=== PATIENT | male | born 1980 | race Caucasian/White ===

== ENCOUNTER 2019-10-04 13:36 | Emergency (ER) | payer BC ==
[2019-10-04] MEDS ORDERED: Sodium Chloride 0.9% 10 ML Syringe FLUSH PRN (13:52)
--- NOTE | 2019-10-04 14:09 | EDM.PDOC ---
ED HPI GENERAL MEDICAL PROBLEM - General Chief Complaint: Diabetic Complaint Stated Complaint: HIGH BLOOD SUGAR Time Seen by Provider: 10/04/19 13:38 Source of Information: Reports: Patient History Limitations: Reports: No Limitations - History of Present Illness INITIAL COMMENTS - FREE TEXT/NARRATIVE: Patient is a 39-year-old male who presents to the emergency department with complaints of a 3-day history of dizziness and weakness. He states on Monday of this week he was at work and he "felt weird ". His boss sent him home from work. When he got home, he checked his blood sugar and it was found to be 500. Patient does have a history of type 2 diabetes, however states that he was taken off his metformin approximately 2 years ago because his A1c's were good. He has not taken any diabetic medication since that time. On Monday evening he did take two 500 mg tabs of metformin. States his blood sugar came down to the 300s. He has continued taking the metformin 1000 mg once daily since Monday, however states that the lowest blood sugar has been at home is 279 and whenever he eats it goes higher. Last night he also developed some mild right lower back discomfort. He is unsure if this pain is coming from his kidneys or his back pain related to him lying around more over the last few days. He denies any polyuria, polydipsia, vision changes, nausea, vomiting, or diarrhea. He does have intermittent chills and diaphoresis. His primary care provider is Makenna Peres and he is due to have his annual exam. He states he try to get in with her today, however she is out of town. Bedside glucose on triage was 243. Patient states he ate a BLT around 1030 this morning, and that is the first significant carbohydrate he has eaten since Monday. Bilateral Flank Pain Score (Numeric/FACES): 4 - Related Data Allergies Allergy/AdvReac Type Severity Reaction Status Date / Time No Known Allergies Allergy Verified 11/17/17 02:31 Home Meds: Home Meds Lisinopril 10 mg PO DAILY 11/17/17 [History] atorvaSTATin Calcium [Atorvastatin Calcium] 20 mg PO DAILY 11/17/17 [History] buPROPion [Wellbutrin] 0 mg PO DAILY 11/17/17 [History] metFORMIN [Glucophage XR] 2 tab PO BIDMEALS 11/17/17 [History] metFORMIN [Glucophage XR] 1,000 mg PO DAILY #30 tab.er 10/04/19 [Rx] Past Medical History Cardiovascular History: Reports: High Cholesterol, Hypertension Endocrine/Metabolic History: Reports: Diabetes, Type II - Past Surgical History HEENT Surgical History: Reports: Naso-Sinus Surgery, Tonsillectomy Social & Family History - Family History Family Medical History: Noncontributory - Tobacco Use Smoking Status *Q: Current Every Day Smoker Years of Tobacco use: 10 Packs/Tins Daily: 0.5 - Caffeine Use Caffeine Use: Reports: Coffee - Recreational Drug Use Recreational Drug Use: No - Living Situation & Occupation Living situation: Reports: Single, with Significant Other Occupation: Employed ED ROS GENERAL - Review of Systems Review Of Systems: See Below Constitutional: Reports: Chills, Weakness. Denies: Fever HEENT: Reports: No Symptoms Respiratory: Reports: No Symptoms. Denies: Shortness of Breath, Cough Cardiovascular: Reports: No Symptoms. Denies: Chest Pain, Palpitations Endocrine: Reports: Fatigue, High Glucose. Denies: Polydypsia, Polyuria GI/Abdominal: Reports: No Symptoms : Reports: No Symptoms Musculoskeletal: Reports: No Symptoms Skin: Reports: No Symptoms Neurological: Reports: No Symptoms Psychiatric: Reports: No Symptoms Hematologic/Lymphatic: Reports: No Symptoms Immunologic: Reports: No Symptoms ED EXAM GENERAL NO PERIP PULSE - Physical Exam Exam: See Below Exam Limited By: No Limitations General Appearance: Alert, WD/WN, No Apparent Distress Respiratory/Chest: No Respiratory Distress, Lungs Clear, Normal Breath Sounds, No Accessory Muscle Use, Chest Non-Tender Cardiovascular: Normal Peripheral Pulses, Regular Rate, Rhythm, No Edema, No Gallop, No JVD, No Murmur, No Rub GI/Abdominal: Normal Bowel Sounds, Soft, Non-Tender, No Organomegaly, No Distention, No Abnormal Bruit, No Mass Extremities: Normal Inspection, Normal Range of Motion, Non-Tender, Normal Capillary Refill, No Pedal Edema Neurological: Alert, Oriented, CN II-XII Intact, Normal Cognition, Normal Gait, Normal Reflexes, No Motor/Sensory Deficits Psychiatric: Normal Affect, Normal Mood Skin Exam: Warm, Dry, Intact, Normal Color, No Rash EKG INTERPRETATION EKG Date: 10/04/19 Time: 14:23 Rhythm: NSR Rate (Beats/Min): 110 [place]: Normal P-Wave: Present QRS: Normal QT: Normal EKG Interpretation Comments: Sinus tach Normal axis and interval non-specific ST changes - probably related to ST borderline low voltage EKG interpreted by Dr. Janae MD. Course - Vital Signs Last Recorded V/S: Last Vital Signs Temp 98.0 F 10/04/19 16:33 Pulse 92 10/04/19 16:33 Resp 16 10/04/19 16:33 BP 147/92 H 10/04/19 16:33 Pulse Ox 97 10/04/19 16:33 - Orders/Labs/Meds Orders: Active Orders 24 hr Category Date Time Status Blood Glucose Check, Bedside [RC] ONETIME Care 10/04/19 13:51 Active EKG Documentation Completion [RC] STAT Care 10/04/19 14:14 Active Peripheral IV Care [RC] . DIRECTED Care 10/04/19 13:52 Active Peripheral IV Insertion Adult [OM.PC] Stat Oth 10/04/19 13:51 Ordered Labs: Laboratory Tests 10/04/19 10/04/19 10/04/19 Range/Units 13:58 14:14 14:14 WBC 5.66 (4.23-9.07) K/mm3 RBC 5.48 (4.63-6.08) M/mm3 Hgb 15.9 (13.7-17.5) gm/dl Hct 46.2 (40.1-51.0) % MCV 84.3 (79.0-92.2) fl MCH 29.0 (25.7-32.2) pg MCHC 34.4 (32.2-35.5) g/dl RDW Std Deviation 39.1 (35.1-43.9) fL Plt Count 199 (163-337) K/mm3 MPV 11.4 (9.4-12.3) fl Neut % (Auto) 65.9 (34.0-67.9) % Lymph % (Auto) 18.0 L (21.8-53.1) % [place] % (Auto) 13.6 H (5.3-12.2) % Eos % (Auto) 1.2 (0.8-7.0) Baso % (Auto) 0.4 (0.1-1.2) % Neut # (Auto) 3.73 (1.78-5.38) K/mm3 Lymph # (Auto) 1.02 L (1.32-3.57) K/mm3 [place] # (Auto) 0.77 (0.30-0.82) K/mm3 Eos # (Auto) 0.07 (0.04-0.54) K/mm3 Baso # (Auto) 0.02 (0.01-0.08) K/mm3 Sodium 134 L (136-145) mEq/L Potassium 4.1 (3.5-5.1) mEq/L Chloride 98 (98-107) mEq/L Carbon Dioxide 24 (21-32) mEq/L Anion Gap 16.1 H (5-15) BUN 16 (7-18) mg/dL Creatinine 1.3 (0.7-1.3) mg/dL Est Cr Clr Drug Dosing 85.39 mL/min Estimated GFR (MDRD) > 60 (>60) mL/min BUN/Creatinine Ratio 12.3 L (14-18) Glucose 281 H (74-106) mg/dL POC Glucose 243 H (70-105) mg/dL Hemoglobin A1c (4.50-6.20) % Calcium 8.7 (8.5-10.1) mg/dL Total Bilirubin 0.5 (0.2-1.0) mg/dL AST 44 H (15-37) U/L ALT 124 H (16-63) U/L Alkaline Phosphatase 65 (46-116) U/L Troponin I (0.00-0.056) ng/mL C-Reactive Protein 1.0 (<1.0) mg/dL Total Protein 7.7 (6.4-8.2) g/dl Albumin 4.0 (3.4-5.0) g/dl Globulin 3.7 gm/dL Albumin/Globulin Ratio 1.1 (1-2) Urine Color (Yellow) Urine Appearance (Clear) Urine pH (5.0-8.0) Ur Specific Josephine (1.005-1.030) Urine Protein (Negative) Urine Glucose (UA) (Negative) Urine Ketones (Negative) Urine Occult Blood (Negative) Urine Nitrite (Negative) Urine Bilirubin (Negative) Urine Urobilinogen (0.2-1.0) Ur Leukocyte Esterase (Negative) Urine RBC (0-5) /hpf Urine WBC (0-5) /hpf Ur Squamous Epith Cells (0-5) /hpf Urine Bacteria (FEW) /hpf Urine Mucus (FEW) /hpf Ketones (0.0-0.3) mM 10/04/19 10/04/19 10/04/19 Range/Units 14:14 14:14 14:14 WBC (4.23-9.07) K/mm3 RBC (4.63-6.08) M/mm3 Hgb (13.7-17.5) gm/dl Hct (40.1-51.0) % MCV (79.0-92.2) fl MCH (25.7-32.2) pg MCHC (32.2-35.5) g/dl RDW Std Deviation (35.1-43.9) fL Plt Count (163-337) K/mm3 MPV (9.4-12.3) fl Neut % (Auto) (34.0-67.9) % Lymph % (Auto) (21.8-53.1) % [place] % (Auto) (5.3-12.2) % Eos % (Auto) (0.8-7.0) Baso % (Auto) (0.1-1.2) % Neut # (Auto) (1.78-5.38) K/mm3 Lymph # (Auto) (1.32-3.57) K/mm3 [place] # (Auto) (0.30-0.82) K/mm3 Eos # (Auto) (0.04-0.54) K/mm3 Baso # (Auto) (0.01-0.08) K/mm3 Sodium (136-145) mEq/L Potassium (3.5-5.1) mEq/L Chloride (98-107) mEq/L Carbon Dioxide (21-32) mEq/L Anion Gap (5-15) BUN (7-18) mg/dL Creatinine (0.7-1.3) mg/dL Est Cr Clr Drug Dosing mL/min Estimated GFR (MDRD) (>60) mL/min BUN/Creatinine Ratio (14-18) Glucose (74-106) mg/dL POC Glucose (70-105) mg/dL Hemoglobin A1c 8.60 H (4.50-6.20) % Calcium (8.5-10.1) mg/dL Total Bilirubin (0.2-1.0) mg/dL AST (15-37) U/L ALT (16-63) U/L Alkaline Phosphatase (46-116) U/L Troponin I < 0.017 (0.00-0.056) ng/mL C-Reactive Protein (<1.0) mg/dL Total Protein (6.4-8.2) g/dl Albumin (3.4-5.0) g/dl Globulin gm/dL Albumin/Globulin Ratio (1-2) Urine Color (Yellow) Urine Appearance (Clear) Urine pH (5.0-8.0) Ur Specific Josephine (1.005-1.030) Urine Protein (Negative) Urine Glucose (UA) (Negative) Urine Ketones (Negative) Urine Occult Blood (Negative) Urine Nitrite (Negative) Urine Bilirubin (Negative) Urine Urobilinogen (0.2-1.0) Ur Leukocyte Esterase (Negative) Urine RBC (0-5) /hpf Urine WBC (0-5) /hpf Ur Squamous Epith Cells (0-5) /hpf Urine Bacteria (FEW) /hpf Urine Mucus (FEW) /hpf Ketones 0.16 (0.0-0.3) mM 07/24/20 Range/Units 15:16 WBC (4.23-9.07) K/mm3 RBC (4.63-6.08) M/mm3 Hgb (13.7-17.5) gm/dl Hct (40.1-51.0) % MCV (79.0-92.2) fl MCH (25.7-32.2) pg MCHC (32.2-35.5) g/dl RDW Std Deviation (35.1-43.9) fL Plt Count (163-337) K/mm3 MPV (9.4-12.3) fl Neut % (Auto) (34.0-67.9) % Lymph % (Auto) (21.8-53.1) % [place] % (Auto) (5.3-12.2) % Eos % (Auto) (0.8-7.0) Baso % (Auto) (0.1-1.2) % Neut # (Auto) (1.78-5.38) K/mm3 Lymph # (Auto) (1.32-3.57) K/mm3 [place] # (Auto) (0.30-0.82) K/mm3 Eos # (Auto) (0.04-0.54) K/mm3 Baso # (Auto) (0.01-0.08) K/mm3 Sodium (136-145) mEq/L Potassium (3.5-5.1) mEq/L Chloride (98-107) mEq/L Carbon Dioxide (21-32) mEq/L Anion Gap (5-15) BUN (7-18) mg/dL Creatinine (0.7-1.3) mg/dL Est Cr Clr Drug Dosing mL/min Estimated GFR (MDRD) (>60) mL/min BUN/Creatinine Ratio (14-18) Glucose (74-106) mg/dL POC Glucose (70-105) mg/dL Hemoglobin A1c (4.50-6.20) % Calcium (8.5-10.1) mg/dL Total Bilirubin (0.2-1.0) mg/dL AST (15-37) U/L ALT (16-63) U/L Alkaline Phosphatase (46-116) U/L Troponin I (0.00-0.056) ng/mL C-Reactive Protein (<1.0) mg/dL Total Protein (6.4-8.2) g/dl Albumin (3.4-5.0) g/dl Globulin gm/dL Albumin/Globulin Ratio (1-2) Urine Color Yellow (Yellow) Urine Appearance Clear (Clear) Urine pH 5.0 (5.0-8.0) Ur Specific [place] > or = 1.030 (1.005-1.030) Urine Protein Trace H (Negative) Urine Glucose (UA) 2+ H (Negative) Urine Ketones Trace H (Negative) Urine Occult Blood Negative (Negative) Urine Nitrite Negative (Negative) Urine Bilirubin Negative (Negative) Urine Urobilinogen 0.2 (0.2-1.0) Ur Leukocyte Esterase Negative (Negative) Urine RBC 0-5 (0-5) /hpf Urine WBC 0-5 (0-5) /hpf Ur Squamous Epith Cells 0-5 (0-5) /hpf Urine Bacteria Few (FEW) /hpf Urine Mucus Moderate H (FEW) /hpf Ketones (0.0-0.3) mM Meds: Medications Discontinued Medications Generic Name Dose Route Start Last Admin Trade Name Edwin PRN Reason Stop Dose Admin Sodium Chloride 1,000 mls @ 999 mls/hr 10/04/19 14:15 10/04/19 14:28 Normal Saline IV 999 mls/hr ASDIRECTED BEVERLY Administration Sodium Chloride 10 ml 10/04/19 13:52 10/04/19 14:28 Saline Flush FLUSH 10 ml ASDIRECTED PRN Administration Keep Vein Open - Re-Assessments/Exams Free Text/Narrative Re-Assessment/Exam: 10/04/19 16:03 Hematology was significant for slowed exam slightly low at 134, anion gap elevated at 16.1, glucose elevated at 281, hemoglobin A1c elevated at 8.6, AST slightly elevated at 44, ALT 124 CRP was normal, troponin was normal, and ketones were normal. Urinalysis was significant for trace protein, 2+ glucose, and trace ketones. There was no signs of blood or infection in his urine to suggest that there is back pain is coming from his kidneys. EKG was normal. Discussed with him that the back pain is likely musculoskeletal. Since he did so well with the metformin XR 1000 mg once daily in the past, I will recommend that he start taking this medication again. The medication he has at home is 2 years old, therefore I will send a new prescription to [place] pharmacy in [facility]. Recommend that he ensure adequate fluid intake. Testing for coronavirus was offered, however he states he was tested at work and found to be negative, therefore he does not wish to pursue that at this time. I will recommend that he follow-up with his primary care provider at her next available appointment to discuss today's occurrences and for ongoing management of his diabetes. He is in agreement with this. Discharge instructions as documented. Departure - Departure Time of Disposition: 16:03 Disposition: Home, Self-Care 01 Condition: Good Clinical Impression: Type 2 diabetes mellitus with hyperglycemia Qualifiers: Diabetes mellitus joint terminal attack controller insulin use: without assisted use Qualified Code(s): E11.65 - Type 2 diabetes mellitus with hyperglycemia - Discharge Information *PRESCRIPTION DRUG MONITORING PROGRAM REVIEWED*: No *COPY OF PRESCRIPTION DRUG MONITORING REPORT IN PATIENT KAITLIN: No Prescriptions: metFORMIN [Glucophage XR] 1,000 mg PO DAILY #30 tab.er Instructions: Type 2 Diabetes Mellitus, Self Care, Adult, [id number] Referrals: Floberg,Linda M, HEAD OF ACQUISITIONS [Primary Care Provider] - Forms: ED Department Discharge, ED Return to Work/School Form Additional Instructions: You were seen in the emergency department today for 3-day history of weakness, dizziness, and elevated blood sugars. Work-up included blood work, EKG of your heart, and urinalysis. Your blood sugar was found to be elevated at 281. A1c was elevated at 8.1. While in the ER, you received a liter of IV fluids. I would recommend that you continue taking the Metformin XR 1000 mg daily. A prescription for this has been sent to [place] pharmacy in [place]. Ensure that you taking an adequate amount of fluid. You may use [id number] Tylenol or ibuprofen as needed for your low back pain. Recommend that you call to schedule a follow-up appointment with your primary care provider at her next available visit. If you should experience any new or worsening symptoms of concern, please not hesitate to return to the emergency department. Sepsis Event Note (ED) - Evaluation Sepsis Screening Result: No Definite Risk - Focused Exam Vital Signs: Vital Signs Temp Pulse Resp BP Pulse Ox 10/04/19 16:33 98.0 F 92 16 147/92 H 97 10/04/19 13:56 97.2 F 124 H 20 148/102 H 99 - My Orders Last 24 Hours: My Active Orders 10/04/19 13:51 Blood Glucose Check, Bedside [RC] ONETIME Peripheral IV Insertion Adult [OM.PC] Stat 10/04/19 13:52 Peripheral IV Care [RC] . DIRECTED 10/04/19 14:14 EKG Documentation Completion [RC] STAT - Assessment/Plan Last 24 Hours: My Active Orders 10/04/19 13:51 Blood Glucose Check, Bedside [RC] ONETIME Peripheral IV Insertion Adult [OM.PC] Stat 10/04/19 13:52 Peripheral IV Care [RC] . DIRECTED 10/04/19 14:14 EKG Documentation Completion [RC] STAT
[2019-10-04] MEDS ORDERED: Sodium Chloride 0.9% 1,000 ML IV SCH (14:15)
[2019-10-04 14:38] LABS: HEMOGLOBIN A1C 8.6 % (4.50-6.20)
[2019-10-04 16:38] VITALS: BP 147/92; PULSE 92
== END 2019-10-04 16:39 | disposition home or self-care (01) ==
LOC: JD.ED 13:36
DX: E11.65 Type 2 diabetes mellitus with hyperglycemia (principal); I10 Essential (primary) hypertension; E78.00 Pure hypercholesterolemia, unspecified; F17.210 Nicotine dependence, cigarettes, uncomplicated; R00.0 Tachycardia, unspecified; Z79.899 Other long term (current) drug therapy; Z79.84 Long term (current) use of oral hypoglycemic drugs
CPT/HCPCS: 36415; 80053; 81001; 82009; 82962; 83036; 84484; 85025; 86140; 93005; 96360; 99285; J7030; 93010; 99284

== ENCOUNTER 2024-08-06 07:34 | Day surgery (SDC) | payer BC ==
[2024-08-06] MEDS ORDERED: Midazolam 1 MG/ML 2 ML SDV ONE (07:44)
[2024-08-06] MEDS ORDERED: Lidocaine 1% 4 ML ONE (07:44)
[2024-08-06] MEDS ORDERED: Propofol 200 MG/20 ML SDV ONE (07:44)
[2024-08-06] MEDS: Lactated Ringers 1,000 ML IV SCH (08:15)
[2024-08-06] MEDS ORDERED: Sodium Chloride 0.9% 10 ML Syringe FLUSH PRN (08:20)
[2024-08-06] MEDS ORDERED: Sodium Chloride 0.9% 10 ML Syringe FLUSH SCH (09:00)
[2024-08-06 09:31] VITALS: BP 127/75; PULSE 67
== END 2024-08-06 09:42 | disposition home or self-care (01) ==
LOC: JD.SDS 07:34
PROVIDERS: ATTEND Surgery
DX: K62.5 Hemorrhage of anus and rectum (principal); E11.9 Type 2 diabetes mellitus without complications; E78.00 Pure hypercholesterolemia, unspecified; E66.01 Morbid (severe) obesity due to excess calories; I10 Essential (primary) hypertension; F17.210 Nicotine dependence, cigarettes, uncomplicated; Z68.41 Body mass index [BMI] 40.0-44.9, adult; Z79.84 Long term (current) use of oral hypoglycemic drugs; Z79.899 Other long term (current) drug therapy
CPT/HCPCS: 45378; J2003; J2250; J2704; J7120; 00811